=== PATIENT | male | born 1960 | race Asian ===

== ENCOUNTER 2018-04-29 20:28 | Emergency (ER) | payer OTHER ==
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
--- NOTE | 2018-04-30 08:27 | Diagnostic Imaging Report ---
CT scan of the brain without contrast History: Trauma Total DLP equals 625 CTDI equals 34.0 Axial sections were obtained from the base of the skull to the vertex. There is a normal ventricular system size. No focal parenchymal lesions are seen. No evidence of any mass effect or shift of midline structures. No extra-axial masses or abnormal fluid collections. There is evidence for right maxillary sinusitis. Impression: Negative examination
--- NOTE | 2018-04-30 08:28 | Diagnostic Imaging Report ---
Exam: Left hand x-ray HISTORY: Pain Findings: Multiple views of the right hand reviewed. The study demonstrates no evidence of fracture, dislocation or soft tissue swelling. 1 mm avulsion fracture of the left ulna styloid process is appreciated. The radiocarpal joint is intact. IMPRESSION: Normal examination left hand.
== END 2018-04-29 22:00 | disposition home or self-care (01) ==
LOC: ER 20:28
DX: M25.542 Pain in joints of left hand (principal); S00.03XA Contusion of scalp, initial encounter; S60.222A Contusion of left hand, initial encounter; S50.12XA Contusion of left forearm, initial encounter; E78.5 Hyperlipidemia, unspecified; V89.2XXA Person injured in unspecified motor-vehicle accident, traffic, initial encounter; Y93.89 Activity, other specified; Y92.410 Unspecified street and highway as the place of occurrence of the external cause; Y99.8 Other external cause status
CPT/HCPCS: 70450-TC; 73130-TC-LT; Z7502